=== PATIENT | female | born 1995 | race Caucasian/White ===

== ENCOUNTER → 2016-09-04 | Outpatient (CLI) | payer OTHER ==
--- NOTE | 2016-09-04 16:24 | DX ---
PA and lateral chest. September 04, 2016. Clinical History: Fever, cough. Comparison Study: None available. Findings: The lungs are clear. No pleural disease identified. Heart size is normal. Visualized osseous structures appear normal. Impression: No pneumonia identified..
== END ==
LOC: FIMAGING 12:55
PROVIDERS: ATTEND Internal Medicine
DX: R05 Cough (principal); R50.9 Fever, unspecified